=== PATIENT | male | born 1990 | race Caucasian/White ===

== ENCOUNTER 2018-07-27 18:41 | Emergency (ER) | payer MEDICAID ==
[~2018-07-27] VITALS: Ht 160 cm; Wt 72.6 kg
[2018-07-27 18:46] VITALS: BP_SYST 164
--- NOTE | 2018-07-27 18:48 | NUR ---
Patient to ER bed 03 to gown for evaluation. Side rails up.
--- NOTE | 2018-07-27 18:50 | NUR ---
Pt brought by family member , [email or web address], pt presents to ER with cough, congestion, bodyaches ,chest pain only during cough, cap refill <2 seconds, fever 102.1, skin pink and warm, cap refill <3,will continue to monitor.
[2018-07-27] MEDS ORDERED: ACETAMINOPHEN 500 MG TABLET PO ONE (19:00)
--- NOTE | 2018-07-27 19:00 | NUR ---
Dr Nieves at bedside examining patient
--- NOTE | 2018-07-27 19:56 | NUR ---
ER Dr. Michael at bedside examining patient.
--- NOTE | 2018-07-27 19:59 | NUR ---
Pt's current tempurate is 103.5 [address] medication administration[address] Dr[address] Michael notified.
[2018-07-27] MEDS ORDERED: IBUPROFEN 800 MG TABLET PO ONE (20:00)
--- NOTE | 2018-07-27 20:10 | NUR ---
Pt was been given Motrin and ice packs for active cooling
[2018-07-27 20:18] VITALS: BP_SYST 140
--- NOTE | 2018-07-27 20:18 | NUR ---
Patient given written and verbal discharge instructions and verbalizes understanding. ER MD discussed with patient the results and treatment provided. Patient in stable condition. ID arm band removed. Rx of Prednisone and Motrin given. Patient educated on pain management and to follow up with PMD. Pain Scale 0/10. Opportunity for questions provided and answered. Medication side effect fact sheet provided.
== END 2018-07-27 20:18 | disposition home or self-care (01) ==
LOC: SED 18:41
DX: J06.9 Acute upper respiratory infection, unspecified (principal); R05 Cough; R50.9 Fever, unspecified; R03.0 Elevated blood-pressure reading, without diagnosis of hypertension
CPT/HCPCS: 36415; 71045; 86710; 99284